=== PATIENT | female | born 1970 | race Caucasian/White ===

== ENCOUNTER 2017-10-10 08:49 | Emergency (ER) ==
[2017-10-10 08:56] VITALS: BP 155/94; TEMP 98; BMI 36.6
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
[2017-10-10] MEDS ORDERED: MOBIC PO STA (10:58)
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
== END 2017-10-10 12:36 | disposition home or self-care (01) ==
LOC: ED 08:49
DX: R07.89 Other chest pain (principal); S40.012A Contusion of left shoulder, initial encounter; S46.912A Strain of unspecified muscle, fascia and tendon at shoulder and upper arm level, left arm, initial encounter; V89.2XXA Person injured in unspecified motor-vehicle accident, traffic, initial encounter; N39.0 Urinary tract infection, site not specified
CPT/HCPCS: 36415; 80053; 81001; 85025; 87086; 93005; 93010; 99284